=== PATIENT | female | born 1950 | race Caucasian/White ===

== ENCOUNTER 2022-05-02 04:25 | Day surgery (SDC) | payer OTHER ==
[2022-05-02 11:37] VITALS: RESP 16; TEMP 97.4
[2022-05-02 12:05] VITALS: PULSE 70
[2022-05-02 12:06] VITALS: BP 127/53
== END 2022-05-02 12:30 | disposition home or self-care (01) ==
LOC: JASU-ENDO 04:25
PROVIDERS: ATTEND Internal Medicine Gastroenterology
PROC: 0DBN8ZX Excision of Sigmoid Colon, Via Natural or Artificial Opening Endoscopic, Diagnostic (ICD-10-PCS; principal; 2022-05-02 11:00)
DX: Z12.11 Encounter for screening for malignant neoplasm of colon (principal); D12.5 Benign neoplasm of sigmoid colon; D17.5 Benign lipomatous neoplasm of intra-abdominal organs; K59.89 Other specified functional intestinal disorders; K64.8 Other hemorrhoids; Z80.0 Family history of malignant neoplasm of digestive organs
CPT/HCPCS: 88305-TC